=== PATIENT | female | born 1980 | race Caucasian/White ===

== ENCOUNTER 2025-07-01 18:46 | Emergency (ER) | payer SELFPAY ==
[~2025-07-01] VITALS: Ht 154.9 cm; Wt 60.0 kg
[2025-07-01 18:55] VITALS: O2SAT 99
[2025-07-01] MEDS: SODIUM CHLORIDE 0.9% 1,000 ML IV ONE (19:51)
[2025-07-01 19:54] LABS: BASOPHILS % 0.6 % (0.0-2.0); EOSINOPHILS % 0.4 % (0.0-5.0); HEMATOCRIT. 39.7 % (36.0-48.0); HEMOGLOBIN. 13.4 g/dL (12.0-16.0); LYMPHOCYTES % 28.0 % (20.0-50.0); MEAN PLATELET VOLUME 7.1 fl (7.4-10.4); MONOCYTES % 7.2 % (2.0-8.0); NEUTROPHILS % 63.8 % (40.0-76.0); PLATELET 323 x1000/uL (130-400); RED BLOOD CELL COUNT 4.40 mill/uL (4.2-5.4); RED CELL DISTRIBUTION WIDTH 13.5 % (11.6-14.6)
[2025-07-01 20:08] LABS: CREATININE 0.9 mg/dL (0.6-1.0); UREA NITROGEN BLOOD 10 mg/dL (9-23)
[2025-07-01 20:58] LABS: *AMPHETAMINES SCREEN URINE PRESUMPTIVE POSITIVE (NEGATIVE); *BARBITURATES SCREEN URINE NEGATIVE (NEGATIVE); *BENZODIAZEPINES SCREEN URINE NEGATIVE (NEGATIVE); *COCAINE SCREEN URINE NEGATIVE (NEGATIVE); CANNABINOID URINE SCREEN PRESUMPTIVE POSITIVE (NEGATIVE); ECSTASY MDMA SCREEN URINE CONF.TEST INDICATED (NEGATIVE); METHADONE URINE SCREEN NEGATIVE (NEGATIVE); OPIATES URINE SCREEN NEGATIVE (NEGATIVE); PHENCYCLIDINE URINE SCREEN NEGATIVE (NEGATIVE)
[2025-07-02 01:30] VITALS: BP 108/67; PULSE 76; RESP 15; TEMP 36.6; O2SAT 100
== END 2025-07-02 01:35 | disposition home or self-care (01) ==
LOC: EDBD 18:46 → ER 18:46
DX: F12.90 Cannabis use, unspecified, uncomplicated (principal); F41.9 Anxiety disorder, unspecified; T40.715A Adverse effect of cannabis, initial encounter; F20.9 Schizophrenia, unspecified; Z79.899 Other long term (current) drug therapy; Y92.89 Other specified places as the place of occurrence of the external cause
CPT/HCPCS: 80305; 80048; 80320; 85025; 36415; 96360; 99283; J7030; G0480